=== PATIENT | female | born 1960 | race Caucasian/White ===

== ENCOUNTER → 2019-03-12 08:52 | Outpatient (CLI) | payer OTHER, SELFPAY ==
--- NOTE | 2019-03-12 08:56 | US_ITS ---
HISTORY: nodule EXAMINATION: US Thyroid (eg thyroid, parathyroid, parotid) TECHNIQUE: Salazar scale and color doppler imaging was performed of the thyroid gland. COMPARISON: Most recent comparison is from February 11, 2017. Comparison study before that is May 23, 2015 FINDINGS: RIGHT THYROID LOBE: Measures 2.6 x 5.4 x 1.7 cm. Echotexture remains heterogeneous. Vascularity persists throughout the right lobe. Within the posterior inferior aspect of the right lobe of the thyroid gland there is a nodule. On today's study this nodule measures 1.6 x 1.4 cm. It is isoechoic to the remaining parenchyma. Its margins are fairly well-defined. It contains no calcifications. It is spherical. It has no cystic components. It is the same size as on the previous study. Directly adjacent to it, inferior to it, is a hypoechoic cystic lesion. It measures 3 x 3 x 4 mm. It was present on the previous study. It is slightly larger on the current study. Posteriorly within the right lobe of the thyroid gland there is another nodule. 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 It was present on the previous study. On today's study I measure it at 6 x 3 mm on the axial image. This is similar to the previous study without enlargement. LEFT THYROID LOBE: Measures 1.9 x 5.3 x 1.4 cm this is similar to the previous study.. Echotexture remains heterogeneous. Vascularity persists throughout the left lobe of the thyroid gland. Chest no discrete nodules or cysts are perceived within the left lobe of the thyroid gland. Some lymph nodes are present adjacent to the left lobe of thyroid gland. These are not pathologic by size criteria or appearance ISTHMUS: Is heterogeneous and 5 mm thick. This is similar to the previous study. No thyroid nodules are present. US/Thyroid IMPRESSION: Slight increased in a benign-appearing cyst within the inferior pole of the right lobe of the thyroid gland. 2 right lobe thyroid gland nodules have not increased in size. Stability suggest benignity. No left lobe nodules. Left neck lymph nodes are not pathologic by size or number and are similar to the previous study. at [id number] Reported and signed by: Ceasar Joseph MD Electronically Signed: Ceasar Joseph MD at 23:11 EDT Tel , Service support ,
== END ==
PROVIDERS: Referring Provider Otolaryngology; Visit Provider Otolaryngology
DX: E04.1 Nontoxic single thyroid nodule (principal)
CPT/HCPCS: 76536